=== PATIENT | male | born 1990 | race Caucasian/White ===

== ENCOUNTER 2019-01-21 06:19 | Observation (INO) | payer OTHER ==
[2019-01-21] MEDS ORDERED: ONDANSETRON 4 MG/2 ML VIAL IVP ONE (06:41)
[2019-01-21] MEDS ORDERED: KETOROLAC 30 MG/1 ML SDV IVP ONE (06:41)
[2019-01-21] MEDS ORDERED: NS 1,000 ML IV ONE (06:41)
[2019-01-21 06:52] LABS: PLATELET COUNT 281 10^3/uL (150-400)
[2019-01-21] MEDS ORDERED: IOPAMIDOL (ISOVUE-300) 100 ML BTL ONE (06:55)
--- NOTE | 2019-01-21 07:02 | EDPHY ---
H & P Stated Complaint: abd pain Time Seen by Provider: 01/21/19 06:33 - Personal History Current Tetanus/Diphtheria Vaccine: Yes Current Tetanus Diphtheria and Acellular Pertussis (TDAP): Yes - Medical/Surgical History Hx Asthma: No Hx Chronic Respiratory Disease: No Hx Diabetes: No Hx Cardiac Disease: No Hx Renal Disease: No Hx Cirrhosis: No Hx Alcoholism: No Hx HIV/AIDS: No Hx Splenectomy or Spleen Trauma: No Other PMH: perf intestine with removal - Social History Smoking Status: Current every day smoker Constitutional: Initial Vital Signs Temperature (C) 36.6 C 01/21/19 06:22 Heart Rate 73 01/21/19 06:22 Respiratory Rate 18 01/21/19 06:22 Blood Pressure 122/61 H 01/21/19 06:22 O2 Sat (%) 96 01/21/19 06:22 O2 Delivery Mode Room Air Allergies/Adverse Reactions: No Known Allergies Allergy (Unverified 01/21/19 06:21) Home Medications: Medication Instructions Recorded NK [No Known Home Meds] 01/21/19 Medical Decision Making ED Course/Re-evaluation: CHIEF COMPLAINT: Abdominal pain nausea vomiting HISTORY OF PRESENT ILLNESS: 28-year-old gentleman who in 2007 had a perforated bowel. He is unclear why his bowel perforated and states no one ever figured out. He did have a bowel resection. It is unclear to him what part of his bowel was resected. This past this patient started to develop some nausea and vomiting and abdominal and flank pain. The symptoms remind him somewhat of his prior bowel perforation. He denies any diarrhea. Denies any fevers. He says he has been barely able to hold down any food or drink since he started vomiting. REVIEW OF SYSTEMS: A comprehensive 10 system review of systems is otherwise negative aside from elements mentioned in the history of present illness and medical decision making. PHYSICAL EXAM: HR, BP, O2 Sat, RR. Temp noted General Appearance: Alert, well hydrated, appropriate, and non-toxic appearing. Head: Atraumatic without scalp tenderness or obvious injury Eyes: Pupils equal, round, reactive to light and accommodation, EOMI, no trauma , no injection. Ears: Clear bilaterally, no perforation, normal landmarks Nose: Atraumatic, no rhinorrhea, clear. Throat: There is no erythema or exudates, no lesions, normal tonsils, mucus membranes moist. Neck: Supple, 2+ carotid upstroke, nontender, no lymphadenopathy. Respiratory: No retractions, no distress, no wheezes, and no accessory muscle use. Lungs are clear to auscultation bilaterally. Cardiovascular: Regular rate and rhythm, no murmurs, rubs, or gallops. Bilateral carotid, radial, dorsalis pedis, and posterior tibial pulses intact. Good capillary refill all extremities. Gastrointestinal: Patient has diffuse abdominal tenderness. He is bordering peritoneal signs. He also has bilateral flank pain. Musculoskeletal: Normal active ROM of all extremities, atraumatic. Neurological: Alert, appropriate, and interactive. The patient has normal DTRs and non-focal cranial nerves, motor, sensory, and cerebellar exam. Skin: No rashes, good turgor, no nodules on palpation. Past medical history: Perforated bowel Past surgical history: Bowel resection secondary to perforated bowel Family history: 3 brothers who are heroin addicts therefore this patient will not accept any narcotic analgesics Social history: Single, employed, does not abuse tobacco drugs or alcohol DIAGNOSTICS/PROCEDURES/CRITICAL CARE TIME: CT abdomen/pelvis: [facility] radiologist report is conflicting. Will consult with our radiologist. Dr. Yo, radiology, reports multiple enlarged lymph nodes concerning for lymphoma. DIFFERENTIAL DIAGNOSIS: The differential diagnosis for the patient's abdominal pain included but was not limited to appendicitis, cholecystitis, hernias, testicular torsion, gastritis, and urinary tract infection. MEDICAL DECISION MAKING: This patient has fairly diffuse tenderness. I am concerned regarding statement that the symptomatology reminds him of his prior bowel perforation especially in light of the fact his perforation etiology was never discovered. CT scan laboratory studies are pending. I have given this patient 30 mg of Toradol 4 mg of Zofran intravenous fluids. Labs unremarkable, pointing away from perforation. UA pending. Abdominal CT is concerning for lymphoma. Spoke with hospitalist service. Dr. Dillard accepts admission. 0845: Consulted with Dr. Negro, oncology. Cell number: [phone]. She will consult during admission. - Data Points Laboratory Results: Laboratory Results 01/21/19 06:35 01/21/19 06:35 01/21/19 01/21/19 01/21/19 06:47 06:35 06:35 WBC 8.48 10^3/uL 10^3/uL (3.80-9.50) RBC 5.57 10^6/uL 10^6/uL (4.40-6.38) Hgb 17.6 g/dL H g/dL (13.7-17.5) POC Hgb 17.7 gm/dL H gm/dL (13.7-17.5) Hct 50.8 % % (40.0-51.0) POC Hct 52 % H % (40-51) MCV 91.2 fL fL (81.5-99.8) MCH 31.6 pg pg (27.9-34.1) MCHC 34.6 g/dL g/dL (32.4-36.7) RDW 11.9 % % (11.5-15.2) Plt Count 281 10^3/uL 10^3/uL (150-400) MPV 10.5 fL fL (8.7-11.7) Neut % (Auto) 54.3 % % (39.3-74.2) Lymph % (Auto) 33.1 % % (15.0-45.0) [place] % (Auto) 9.6 % % (4.5-13.0) Eos % (Auto) 2.1 % % (0.6-7.6) Baso % (Auto) 0.5 % % (0.3-1.7) Nucleat RBC Rel Count 0.0 % % (0.0-0.2) Absolute Neuts (auto) 4.61 10^3/uL 10^3/uL (1.70-6.50) Absolute Lymphs (auto) 2.81 10^3/uL 10^3/uL (1.00-3.00) Absolute Monos (auto) 0.81 10^3/uL H 10^3/uL (0.30-0.80) Absolute Eos (auto) 0.18 10^3/uL 10^3/uL (0.03-0.40) Absolute Basos (auto) 0.04 10^3/uL 10^3/uL (0.02-0.10) Absolute Nucleated RBC 0.00 10^3/uL 10^3/uL (0-0.01) Immature Gran % 0.4 % % (0.0-1.1) Immature Gran # 0.03 10^3/uL 10^3/uL (0.00-0.10) POC Sodium 143 mEq/L mEq/L (135-145) Sodium 140 mEq/L mEq/L (135-145) POC Potassium 3.7 mEq/L mEq/L (3.3-5.0) Potassium 4.1 mEq/L mEq/L (3.5-5.2) POC Chloride 105 mEq/L mEq/L (97-110) Chloride 106 mEq/L mEq/L (97-110) Carbon Dioxide 25 mEq/l mEq/l (22-31) POC Total CO2 25 mEq/L mEq/L (22-31) Anion Gap 9 mEq/L mEq/L (6-14) POC BUN 18 mg/dL mg/dL (7-23) BUN 19 mg/dL mg/dL (7-23) Creatinine 0.9 mg/dL mg/dL (0.7-1.3) POC Creatinine 0.9 mg/dL mg/dL (0.7-1.3) Estimated GFR > 60 Glucose 93 mg/dL mg/dL (70-100) POC Glucose 96 mg/dL mg/dL (70-100) Calcium 9.6 mg/dL mg/dL (8.5-10.4) Total Bilirubin 0.6 mg/dL mg/dL (0.1-1.4) Conjugated Bilirubin 0.3 mg/dL mg/dL (0.0-0.5) Unconjugated Bilirubin 0.3 mg/dL mg/dL (0.0-1.1) AST 37 IU/L IU/L (17-59) ALT 39 IU/L IU/L (21-72) Alkaline Phosphatase 89 IU/L IU/L (38-126) Total Protein 7.5 g/dL g/dL (6.3-8.2) Albumin 4.4 g/dL g/dL (3.5-5.0) Lipase 228 IU/L IU/L (23-300) Medications Given: Discontinued Medications Sodium Chloride (Ns) 1,000 mls @ 0 mls/hr IV EDNOW ONE; Wide Open PRN Reason: Protocol Stop: 01/21/19 06:42 Last Admin: 01/21/19 06:47 Dose: 1,000 mls Ketorolac Tromethamine (Toradol) 30 mg IVP EDNOW ONE Stop: 01/21/19 06:42 Last Admin: 01/21/19 06:46 Dose: 30 mg Ondansetron HCl (Zofran) 4 mg IVP EDNOW ONE Stop: 01/21/19 06:42 Last Admin: 01/21/19 06:46 Dose: 4 mg Point of Care Test Results: Chemistry 01/21/19 06:47 POC Sodium 143 mEq/L mEq/L (135-145) POC Potassium 3.7 mEq/L mEq/L (3.3-5.0) POC Chloride 105 mEq/L mEq/L (97-110) POC Total CO2 25 mEq/L mEq/L (22-31) POC BUN 18 mg/dL mg/dL (7-23) POC Creatinine 0.9 mg/dL mg/dL (0.7-1.3) POC Glucose 96 mg/dL mg/dL (70-100) ISTAT H&H 01/21/19 06:47 POC Hgb 17.7 gm/dL H gm/dL (13.7-17.5) POC Hct 52 % H % (40-51) Departure - Departure Disposition: [facility] Inpatient Acute Clinical Impression: Abdominal pain Qualifiers: Abdominal location: unspecified location Qualified Code(s): R10.9 - Unspecified abdominal pain Condition: Fair
[2019-01-21] MEDS ORDERED: HYDROmorphONE/DILAUDID 1 MG/ML INJ IVP PRN (12:00)
[2019-01-21] MEDS ORDERED: ONDANSETRON 4 MG/2 ML VIAL IVP PRN (12:00)
[2019-01-21] MEDS ORDERED: ONDANSETRON DISINTEGRATING 4 MG TAB PO PRN (12:00)
[2019-01-21] MEDS ORDERED: ACETAMINOPHEN 325 MG TAB PO PRN (12:00)
[2019-01-21] MEDS ORDERED: NS 1,000 ML IV SCH (12:00)
[2019-01-21 12:40] LABS: INR 1.04 (0.83-1.16); PROTIME(PATIENT) 13.8 SEC (12.0-15.0)
--- NOTE | 2019-01-21 12:52 | GHP ---
[f rep st] HISTORY AND PHYSICAL DATE OF ADMISSION: 01/21/2019 The patient is a pleasant 28-year-old gentleman with a remote history of bowel perforation of uncerta in etiology, who presents with abdominal pain. About 5 days prior to admission, the patient had an o vernight episode of nausea and vomiting with many episodes of vomiting followed by diarrhea. That conner s largely recovered, but last night he developed abdominal pain as well as some diaphoresis. He has noticed no easy bleeding lately. He has a cousin who has lymphoma at a young age, and his father has what sounds like a chondrocarcinoma or some other bone-related malignancy. Regarding his bowel perforation, this occurred spontaneously, and he has a large abdominal scar. 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 It i s not entirely certain what caused that. The patient is currently well, happy, without complaints. I discussed the risk of biopsy with him. REVIEW OF SYSTEMS: Complete 10-point review of systems conducted and negative except as noted in the HPI. PAST MEDICAL HISTORY: Exploratory laparotomy for what sounds like small-bowel perforation with prima ry anastomosis. 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 Lives in [place]. Originally from [place], [place]. FAMILY HISTORY: As in the HPI. ALLERGIES: No known drug allergies. MEDICATIONS: Excedrin. PHYSICAL EXAMINATION: VITAL SIGNS: Temp 36.7, blood pressure 96/58, pulse 56, breathing 18 times a minute, 98% on room air. GENERAL: No acute distress. HEENT: Sclerae anicteric. Oropharynx clear. Mucous membranes are moist. NECK: Supple without lymphadenopathy or JVD. LUNGS: Clear to auscul tation bilaterally. HEART: S1, S2. ABDOMEN: Soft, nontender, nondistended. He has a well-healed midline scar. There is perhaps some right upper quadrant tenderness, but otherwise unremarkable. DIAGNOSTIC STUDIES: Abdominal CT shows lymphadenopathy and edematous tissue at the back of the abdom en with a relatively normal pancreas. There is no evidence of bowel perforation or free air. I have reviewed and interpreted the images myself and discussed them with Dr. Josh Tijerina. LABS: Sodium 140, potassium 4.1, chloride 106, bicarb 25, BUN 19, creatinine 0.9, glucose 93. LFTs normal. Lipase normal. LDH is pending. Urinalysis is negative. White count 8.5, hematocrit 50, pl atelets are 281,000. ASSESSMENT AND PLAN: A 28-year-old gentleman with abdominal pain, retroperitoneal lymphadenopathy, c oncerning for lymphoma. 1. Question lymphoma. Certainly, this is in the differential, particularly in light of his family h istory; however, his recent viral gastroenteritis could certainly be a reason to have painful lymphad enopathy in the retroperitoneum, particularly in a young healthy abhijit. He does not have any pancytope oma suggestive of marrow issues. The plan here is either biopsy or follow and reevaluate in a period of time. Oncology will see him. I will check an LDH and coags at this time. 2. History of small bowel perforation. It is not clear how this relates to the current situation. He does not give a history suggestive of inflammatory bowel disease. 3. Polycythemia. This is actually seen mostly on his [id number] labs. He does have an elevated hemoglobin at 17.6. He is a young healthy kid who smokes and works at [employer]. I suspect this is t he etiology. 4. Pain. The patient's pain was well managed on Toradol continued. DISPOSITION: Observation status. /[id number]/MODL
--- NOTE | 2019-01-21 13:18 | ASMTCMCOM ---
CM Note CM Note Notes: Chart reviewed. 28 year old male admitted via ED with c/o abdominal pain. CT shows some lymph edema. Dr. Negro consulted. No current needs identified CM available should needs arise. Plan: Likely to dc independently when medically cleared for discharge. Date Signed: 01/21/2019 01:18 PM Electronically Signed By:Jessica Quesada RN
--- NOTE | 2019-01-21 16:07 | GCON ---
[f rep st] CONSULTATION NEW PATIENT CONSULT REFERRING PHYSICIAN: Bill Dillard MD REASON FOR CONSULTATION: Patient admitted with abdominal pain and nonspecific retroperitoneal lympha denopathy. HISTORY OF PRESENT ILLNESS: The patient is a relatively healthy 28-year-old gentleman admitted today with abdominal pain and abnormal CT findings. The patient notes last week about 5 days prior to adm ission, he had nausea and vomiting, followed by diarrhea. Denies any blood in his stool or emesis. He also notes some abdominal cramping. He denies any sick contacts. He reports fever of 101, which has relatively dissipated; however, during fever he did note some diaphoresis, as well as headaches. Prior to this, he denies any night sweats, unintentional weight loss, or notable fevers. He denies a ny enlarging lymphadenopathy, shortness of breath, or chest pain. He reports that his father had megha e sort of lymphoma. This is less clear to me, maybe had a chondrosarcoma or other. Also reports a c ousin had a lymphoma at the young age, also very nonspecific. REVIEW OF SYSTEMS: As per HPI. Reports 3/10 generalized abdominal pain today. He denies bone pain or neurologic symptoms or other. PAST SURGICAL HISTORY: Had an exploratory laparotomy for what sounds like small-bowel perforation wi th primary anastomosis. Per his report, the bowel perforation occurred spontaneously. He reports th is was from a Meckel's diverticulum in the last part of the small bowel, but this is less clear. SOCIAL HISTORY: Smokes tobacco, as well as marijuana. Drinks alcohol on the weekends. 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 Lives in [place]. Originally from [place], [place]. FAMILY HISTORY: As per HPI. ALLERGIES: No known drug allergies. MEDICATION: Occasional Excedrin. PHYSICAL EXAM: VITAL SIGNS: Today is blood pressure 96/58, pulse is 56, respiration rate 18, satura ting 98% on room air, temp is 36.7. GENERAL: He is a 28-year-old, healthy-appearing young man, not in acute distress. HEENT: Anicteric sclerae. Oropharynx is clear. HEART: Regular rate and rhythm . LUNGS: Clear to auscultation bilaterally. ABDOMEN: Mildly tender throughout. No obvious mass. No ascites. No enlarged liver or spleen. LYMPHATIC: Lymph node survey, no supraclavicular or axil gurpreet or cervical lymphadenopathy. LOWER EXTREMITIES: No edema. NEUROLOGIC: Nonfocal. IMAGING DATA: I reviewed his CT of abdomen personally. This shows some retroperitoneal mesenteric h aziness encasing aorta and IVC. Prominent mesenteric lymph nodes surrounded by bowel and vasculature . LABORATORY ANALYSIS: CBC shows a white blood cell count of 8.48, hemoglobin 17.6, hematocrit 50.8, p latelet count of 281,000. Differential on his CBC is essentially normal. INR 1. CMP is completely unremarkable. SPEP is currently pending. Lipase 233. LDH normal at 448. Uric acid normal at 7.6. Urinalysis is negative. ASSESSMENT AND PLAN: 28-year-old gentleman with the above-mentioned past medical history who present s with abdominal pain and nonspecific retroperitoneal lymphadenopathy. 1. Abdominal pain and lymphadenopathy. This seems to be in close conjunction with recent gastrointe stinal illness, possibly viral. CT imaging could represent mesenteric lymphadenitis. Viral etiology would be a high-risk differential. I agree with observation, hydrating with intravenous fluids, and watching his abdominal pain. I think we could likely observe him as an outpatient over the next 2 w eeks and order a repeat CT imaging. I will note that his workup has been completely nonspecific, inc luding a normal LDH and normal uric acid. He has a slightly elevated hemoglobin that will be discuss ed below. He has an SPEP that is pending. He is not in acute distress and pain is currently well co ntrolled. He is afebrile. 2. Polycythemia, possibly due to smoking. His MCV of note is within normal limits. We will check a n erythropoietin level. He had no obvious liver lesions or kidney lesions on CT imaging and this CT imaging was with intravenous contrast. 3. We will continue to evaluate in the hospital, but I think patient could be discharged with close followup with [facility]. The patient is in agreement with overall plan. I am hesitant to go stick a need le in nondiscrete areas in the retroperitoneum, and hopefully, this could be further clarified with [facility]. More than 40 minutes was spent with the patient, in discussion with Dr. Dillard, more than 50% of time in counseling and coordinating care. /[id number]/MODL
--- NOTE | 2019-01-21 16:17 | ASMTLACE ---
LACE Length of stay for Answers: Less than 1 day current admission Comorbidities - select Answers: Other Notes: smoker, polythycemia, b owe all that apply l surgery # of Emergency department Answers: 1-2 visits in the last 6 months Score: 2 Date Signed: 01/21/2019 04:17 PM Electronically Signed By:Jessica Quesada RN
--- NOTE | 2019-01-21 16:18 | ASMTDCNOTE ---
Case Management Discharge Discharge Order Complete? Answers: Yes Patient to Obtain Answers: Independently Medications Transportation Arranged Answers: Family/Friends Family Notified Answers: Yes Discharge Comments Notes: Independent dischareg no needs. Date Signed: 01/21/2019 04:18 PM Electronically Signed By:Jessica Quesada RN
--- NOTE | 2019-01-21 16:38 | GDS ---
[f rep st] DISCHARGE SUMMARY DISCHARGE DIAGNOSES: 1. Retroperitoneal lymphadenopathy. 2. Recent viral gastroenteritis. Please see admission history and physical by Dr. Bill Dillard. The patient presented with abdomina l pain. About 5 days earlier he had had nausea, vomiting, and diarrheal illness that lasted about 48 hours. He does have a history of is what sounds like a spontaneous small-bowel perforation versus p erforated Meckel's diverticulum with exploratory laparotomy and small-bowel resection about 10 years ago when he was a teenager. He had a of details on this. The patient was admitted for the concern of lymphoma. I discussed the case of possible biopsy with Julio César Tijerina, who felt it was about 4 inches deep for retroperitoneal approach lymphadenopathy. She felt it was fairly underwhelming for bulky axillary lymphadenopathy as did Oncology. Notably, h e had a normal cell counts, normal LDH, normal uric acid, normal total protein. The patient really has a relatively low risk of lymphoma and this is more consistent with lymphadenop athy from a viral gastroenteritis. At this point in time, I felt the most prudent plan of action was to discharge today with outpatient followup with Oncology for consideration of repeat scan pending l abs are an SPEP and erythromycin levels as he had moderate polycythemia. The patient works at [employer] and smokes cigarettes. Discharge medications are none. Discharge status is to home. /[id number]/MODL
[2019-01-21 16:45] VITALS: BP 100/63
[2019-01-21] MEDS ORDERED: KETOROLAC 15 MG/1 ML SDV IVP SCH (18:00)
== END 2019-01-21 17:30 | disposition home or self-care (01) ==
LOC: F1N 10:37
PROVIDERS: ADMIT Internal Medicine; ATTEND Internal Medicine
DX: R59.0 Localized enlarged lymph nodes (principal); R10.9 Unspecified abdominal pain; E86.9 Volume depletion, unspecified; D75.1 Secondary polycythemia; F17.210 Nicotine dependence, cigarettes, uncomplicated; Z87.19 Personal history of other diseases of the digestive system
CPT/HCPCS: 82435-PO; 82565-PO; 82668-90; 82947-PO; 84132-PO; 84295-PO; 84520-PO; 85014-ER; 96374; G0378; J1885; J2405; Q9967

== ENCOUNTER 2019-04-28 08:30 | Emergency (ER) | payer SELFPAY | END 2019-04-28 11:13 | disposition home or self-care (01) ==